=== PATIENT | male | born 1960 | race American Indian/Alaskan Native ===

== ENCOUNTER 2018-08-18 05:22 | Day surgery (SDC) | payer OTHER ==
[~2018-08-18 05:22] MED LIST: Dextrose 5%-0.45% NaCl 1,000 ML IV SCH; Sodium Chloride 0.9% 10 ML Syringe FLUSH PRN
[2018-08-18] MEDS ORDERED: fentaNYL 100 MCG/2 ML SDV IV ONE ×3 (05:23→06:37)
[2018-08-18] MEDS ORDERED: Midazolam 1 MG/ML 2 ML SDV IV ONE ×4 (05:23→06:45)
[2018-08-18] MEDS ORDERED: Midazolam 1 MG/ML 2 ML SDV ONE (06:16)
[2018-08-18] MEDS ORDERED: fentaNYL 100 MCG/2 ML SDV ONE (06:16)
--- NOTE | 2018-08-18 08:48 | OR ---
DATE: 08/18/2018 PROCEDURES: Total colonoscopy, narrow-band imaging, and multiple cold snare polypectomies. INSTRUMENT USED: CF-H180 [place] Olympus video colonoscope. PREMEDICATIONS: Fentanyl 100 mcg intravenous and Versed 3 mg intravenous. The procedure was done under pulse oximetry, BP recording, and satellite project site monitor. INDICATION: The patient with rectal bleeding. Colonoscopic examination is done for detection of any polypoid lesions and removal. Endoscopic hemostasis therapy if needed. DESCRIPTION OF PROCEDURE: Initial rectal exam was unremarkable. Rigid anoscopy showed small internal hemorrhoids without bleeding from them. The colonoscope was passed with ease. Numerous scattered diverticula were noted in the distal left colon. In the distal rectum, a 5-mm sized benign-appearing polyp was noted. Photograph was taken. Cold snare polypectomy was done. Polyp was retrieved and sent for histopathology. Prominent venous channels were noted in the rectal area. The scope was passed with ease up to the ileocecal area. Photographs were taken of the normal-appearing cecum, identified by landmarks of appendiceal orifice and double-bulged ileocecal folds. No bleeding was noted from any of the visualized areas at the commencement of the examination. The bowel preparation was found to be adequate. Probing the proximal sides of folds and flexures, using adequate distention and clearing up the stool material, withdrawal of the scope was made. No stricture. No vascular ectasia. No large isolated ulcerations seen. No evidence of diffuse inflammatory bowel disease in the form of friability, contact bleeding, or ulcerations. In the proximal ascending colon, 5-mm sized benign-appearing polyp was noted. NBI views were obtained. Photographs were taken. Cold snare polypectomy was done. The tissue was retrieved and sent for histopathology. Cold snare polypectomy was done of diminutive polyps in the distal ascending colon and sent for histopathology. No bleeding was noted from any of the visualized areas at the completion of examination. IMPRESSION: 1. Internal hemorrhoids. 2. Diverticulosis. 3. Multiple colonic polyps. The patient tolerated the procedure well. [facility] /[id number]
--- NOTE | 2018-08-18 10:27 | LETTER ---
08/18/2018 Yenny Kelly MD [facility] [address] [place] [address] RE: IBARRALANDRY Townsend : [address] Kelly: Mr. Landry Ibarra had colonoscopic examination done this morning and he tolerated the procedure well. I herewith send a copy of the endoscopy note and photographs for your review. Thank you. Sincerely, [facility] /[id number]
== END 2018-08-18 09:05 | disposition home or self-care (01) ==
LOC: DL.ENDO 05:22
PROVIDERS: ATTEND Internal Medicine Gastroenterology
DX: K62.5 Hemorrhage of anus and rectum (principal); D12.2 Benign neoplasm of ascending colon; D12.8 Benign neoplasm of rectum; K57.30 Diverticulosis of large intestine without perforation or abscess without bleeding; K64.8 Other hemorrhoids; I10 Essential (primary) hypertension; E11.9 Type 2 diabetes mellitus without complications; E66.09 Other obesity due to excess calories; E03.9 Hypothyroidism, unspecified; E78.5 Hyperlipidemia, unspecified; Z88.0 Allergy status to penicillin
CPT/HCPCS: 45385; J2250; J3010; J7042

== ENCOUNTER 2025-10-15 15:29 | Emergency (ER) | payer OTHER ==
[2025-10-15] MEDS ORDERED: Sodium Chloride 0.9% 10 ML Syringe FLUSH PRN (16:03)
[2025-10-15] MEDS: Iopamidol 755 Mg/ML 100 ML Bottle IVPUSH ONE (17:16)
== END 2025-10-15 18:45 | disposition left against medical advice (07) ==
LOC: DL.ED 15:29
DX: R94.5 Abnormal results of liver function studies (principal); I11.0 Hypertensive heart disease with heart failure; I50.9 Heart failure, unspecified; R79.89 Other specified abnormal findings of blood chemistry; E03.9 Hypothyroidism, unspecified; E78.00 Pure hypercholesterolemia, unspecified; E11.9 Type 2 diabetes mellitus without complications; F17.200 Nicotine dependence, unspecified, uncomplicated; Z88.0 Allergy status to penicillin; Z79.84 Long term (current) use of oral hypoglycemic drugs; Z79.899 Other long term (current) drug therapy; Z79.82 Long term (current) use of aspirin; Z79.890 Hormone replacement therapy
CPT/HCPCS: 36415; 71275; 74177; 84484; 93005; 99285; Q9967; 93010

== ENCOUNTER 2025-10-15 22:50 | Emergency (ER) | payer OTHER ==
[2025-10-15 23:31] LABS: BASOPHILS PERCENT AUTO 0.5 % (0.0-1.0); EOSINOPHILS PERCENT AUTO 2.2 % (1.0-3.0); LYMPHOCYTES PERCENT AUTO 18.3 % (20.5-50.1); MONOCYTES PERCENT AUTO 8.2 % (2-8); NEUTROPHILS PERCENT AUTO 70.8 % (42.2-75.2); PLATELET COUNT,PLT 192 10^3/uL (150-450); RED BLOOD CELL COUNT 4.69 10^6/uL (4.6-6.2); WHITE BLOOD CELL COUNT,WBC 5.5 10^3/uL (5.0-10.0)
[2025-10-15 23:40] LABS: INR 1.3 (0.9-1.2); PTT,PARTIAL THROMBOPLSTIN TIME 29.3 SEC (22.0-34.0)
[2025-10-15 23:46] LABS: LACTIC ACID 2.2 mmol/L (0.4-2.0)
[2025-10-15 23:51] LABS: A/G RATIO 0.76; ALANINE AMINOTRANSFERASE,ALT 1375 U/L (16-63); ASPARTATE AMNIOTRANSFERASE,AST 942 U/L (15-37); BILIRUBIN TOTAL 2.0 mg/dL (0.2-1.0); BLOOD UREA NITROGEN,BUN 20 mg/dL (7-18); CARBON DIOXIDE,CO2 27 mmol/L (21-32); CHLORIDE,CL 103 mmol/L (98-107); CREATININE 1.22 mg/dL (0.70-1.30); EST CRCL DRUG DOSING (CG) 60.67 mL/min; ESTIMATED GFR 65 mL/min (>=60); GLUCOSE RANDOM 110 mg/dL (70-99); POTASSIUM,K 3.2 mmol/L (3.5-5.1); PROTEIN TOTAL,TP 7.4 g/dL (6.4-8.2); SODIUM,NA 140 mmol/L (136-145); T4 FREE 0.40 ng/dL (0.76-1.46)
[2025-10-15 23:52] LABS: B-TYPE NATRIURETIC PEPTIDE,BNP 807 pg/ml (0-100); ETHANOL BLOOD MEDICAL < 3 mg/dL (0)
[2025-10-16] MEDS: Furosemide 40 MG/4 ML VIAL IVPUSH ONE (00:12)
[2025-10-16 00:15] LABS: TSH ULTRASENSITIVE 114.35 uIU/mL (0.36-3.74)
[2025-10-16] MEDS: Heparin Sodium 5,000 Units/ML Vial IVPUSH ONE (00:18)
[2025-10-16] MEDS: Heparin Sodium/0.45% NaCl 25,000 UNITS/500 ML BAG IV SCH (00:18)
== END 2025-10-16 01:20 ==
LOC: DL.ED 22:50
DX: I21.4 Non-ST elevation (NSTEMI) myocardial infarction (principal); R94.5 Abnormal results of liver function studies; I50.9 Heart failure, unspecified; I11.0 Hypertensive heart disease with heart failure; E78.00 Pure hypercholesterolemia, unspecified; E11.9 Type 2 diabetes mellitus without complications; E03.9 Hypothyroidism, unspecified; Z88.0 Allergy status to penicillin
CPT/HCPCS: 36415; 71045; 80053; 80143; 80307; 83605; 83690; 83735; 83880; 84439; 84443; 84484; 85025; 85610; 85730; 93005; 93010; 96365; 96375; 99285; 99285-25; A9270-GY; J1644; J1938